=== PATIENT | female | born 1955 | race Hispanic/Latino ===

== ENCOUNTER 2019-10-01 18:59 | Inpatient (IN) | payer SELFPAY ==
[~2019-10-01] VITALS: Ht 160 cm; Wt 47.0 kg
[2019-10-01 19:17] LABS: HEMATOCRIT 32.7 % (36-48); LYMPHOCYTES % (AUTO) 29.2 % (21.0-51.0); MEAN CORPUSCULAR HEMOGLOBIN 31.4 pg (27.0-33.0); MEAN CORPUSCULAR HGB CONC 34.9 g/dL (32.0-36.0); MEAN CORPUSCULAR VOLUME 90.1 fL (79-99); MONOCYTES % (AUTO) 6.3 % (3.0-13.0); NEUTROPHILS % (AUTO) 64.1 % (40.0-77.0); PLATELET COUNT (AUTO) 120 K/uL (130-400); RED BLOOD CELL COUNT(AUTO) 3.63 MIL/uL (4.00-5.50); RED CELL DISTRIBUTION WIDTH 11.8 % (11.0-15.5); WHITE BLOOD COUNT (AUTO) 2.4 K/uL (4.8-10.8)
[2019-10-01] MEDS ORDERED: NITROGLYCERIN 0.4 MG SL TAB SL ONE (19:19)
[2019-10-01] MEDS ORDERED: ASPIRIN 81MG TAB.CHEW ONE ×2 (19:19→20:33)
[2019-10-01] MEDS ORDERED: SODIUM CHLORIDE 0.9% 500ML 500 ML IV ONE ×2 (19:19→19:56)
[2019-10-01 19:28] LABS: B-TYPE NATRIURETIC PEPTIDE 13 pg/mL (0-100)
[2019-10-01 19:31] LABS: CREATININE 0.9 mg/dL (0.5-1.5); POTASSIUM 3.6 mmol/L (3.5-5.1)
[2019-10-01 19:35] LABS: ALBUMIN 3.8 g/dL (3.5-5.0); BILIRUBIN,TOTAL 0.6 mg/dL (0.2-1.0); TOTAL PROTEIN, SERUM 7.3 g/dL (6.0-8.3)
[2019-10-01 20:01] LABS: EOSINOPHILS % (MANUAL) 1 % (1-6); LYMPHOCYTES % (MANUAL) 30 % (22-44); MAN.DIFF COMMENT-IMPRESSION MANUAL DIFFERENTIAL; MONOCYTES % (MANUAL) 4 % (2-9); SEGMENTED NEUTROPHILS % 65 % (40-70)
[2019-10-01] MEDS: SODIUM CHLORIDE 0.9% 1000ML 1,000 ML IV SCH (20:51)
[2019-10-01] MEDS ORDERED: LACTULOSE 20 GM/30 ML UDCUP PO PRN (21:00)
[2019-10-01] MEDS ORDERED: SIMETHICONE 80 MG TAB.CHEW PO PRN (21:00)
[2019-10-01] MEDS ORDERED: ONDANSETRON HCL 4 MG/2 ML VIAL IV PRN (21:00)
[2019-10-01] MEDS: METOPROLOL TARTRATE 25 MG TAB PO SCH (21:00)
[2019-10-01] MEDS ORDERED: ACETAMINOPHEN 325 MG TAB PO PRN ×2 (21:00)
[2019-10-01] MEDS: FAMOTIDINE 20MG TAB 20 MG TAB PO SCH (21:00)
[2019-10-01] MEDS: ATORVASTATIN CALCIUM 20 MG TABLET PO SCH (21:00)
[2019-10-01 21:07] LABS: APPEARANCE,URINE Clear (CLEAR); BILIRUBIN,URINE Negative (NEGATIVE); COLOR,URINE Yellow (YELLOW); GLUCOSE, URINE (UA) Negative (NEGATIVE); KETONES,URINE Trace mg/dL (NEGATIVE); LEUKOCYTE ESTERASE ,URINE Moderate (NEGATIVE); NITRATE,URINE Negative (NEGATIVE); OCCULT BLOOD,URINE Negative (NEGATIVE); PH,URINE 8.5 (5.0-8.0); PROTEIN,URINE Negative (NEGATIVE); UROBILINOGEN,URINE 0.2 mg/dL (0.2-1.0)
[2019-10-01 21:11] LABS: CHOLESTEROL 163 mg/dL (<200); HDL CHOLESTEROL 114 mg/dL (35-85); LDL DIRECT 93 mg/dL (0-99); TRIGLYCERIDES 44 mg/dL (30-200)
[2019-10-01 21:12] LABS: HEMOGLOBIN A1C 5.5 % (4.0-6.0)
[2019-10-01 21:25] LABS: BACTERIA,URINE Few /HPF (None Seen); MUCUS,URINE Few LPF (None Seen); SQUAMOUS EPITHELIAL CELL,UR Few /HPF (0-2)
[2019-10-01] MEDS ORDERED: FAMOTIDINE 20MG TAB 20 MG TAB ONE (21:28)
[2019-10-01] MEDS ORDERED: METOPROLOL TARTRATE 25 MG TAB ONE (21:28)
[2019-10-01] MEDS ORDERED: ATORVASTATIN CALCIUM 20 MG TABLET ONE (21:28)
[2019-10-01] MEDS ORDERED: SODIUM CHLORIDE 0.9% 1000ML 1,000 ML IV ONE (21:29)
[2019-10-01] MEDS: CEFTRIAXONE SODIUM 1 GM IVP SCH (21:45)
[2019-10-01] MEDS ORDERED: CEFTRIAXONE SODIUM 1 GM ONE (22:34)
[2019-10-02 04:24] LABS: HEMATOCRIT 29.8 % (36-48); LYMPHOCYTES % (AUTO) 28.8 % (21.0-51.0); MEAN CORPUSCULAR HEMOGLOBIN 32.1 pg (27.0-33.0); MEAN CORPUSCULAR HGB CONC 36.2 g/dL (32.0-36.0); MEAN CORPUSCULAR VOLUME 88.7 fL (79-99); MONOCYTES % (AUTO) 6.8 % (3.0-13.0); NEUTROPHILS % (AUTO) 64.4 % (40.0-77.0); PLATELET COUNT (AUTO) 100 K/uL (130-400); RED BLOOD CELL COUNT(AUTO) 3.36 MIL/uL (4.00-5.50); RED CELL DISTRIBUTION WIDTH 11.9 % (11.0-15.5); WHITE BLOOD COUNT (AUTO) 2.2 K/uL (4.8-10.8)
[2019-10-02 04:41] LABS: CREATININE 0.6 mg/dL (0.5-1.5); POTASSIUM 3.6 mmol/L (3.5-5.1)
[2019-10-02 06:43] LABS: BAND NEUTROPHILS % (MANUAL) 2 % (0-2); LYMPHOCYTES % (MANUAL) 22 % (22-44); MAN.DIFF COMMENT-IMPRESSION MANUAL DIFFERENTIAL; MONOCYTES % (MANUAL) 6 % (2-9); SEGMENTED NEUTROPHILS % 70 % (40-70)
[2019-10-02 06:44] LABS: PLATELET MORPHOLOGY COMMENT SLIGHTLY DECREASED
[2019-10-02] MEDS: SODIUM CHLORIDE 0.9% 1000ML 1,000 ML IV SCH ×2 (06:51→21:18)
[2019-10-02] MEDS: ENOXAPARIN SODIUM 30 MG/0.3 ML SQ SCH (09:00)
[2019-10-02] MEDS: ASPIRIN 325 MG TABLET PO SCH (09:00)
[2019-10-02] MEDS: METOPROLOL TARTRATE 25 MG TAB PO SCH ×2 (09:00→21:17)
[2019-10-02] MEDS: FAMOTIDINE 20MG TAB 20 MG TAB PO SCH ×2 (09:00→21:17)
[2019-10-02] MEDS ORDERED: ENOXAPARIN SODIUM 30 MG/0.3 ML SQ ONE (11:58)
[2019-10-02] MEDS ORDERED: ASPIRIN 81MG TAB.CHEW ONE (11:58)
[2019-10-02] MEDS ORDERED: METOPROLOL TARTRATE 25 MG TAB ONE (11:58)
[2019-10-02 15:24] LABS: THYROID STIMULATING HORMONE 3.59 uIU/mL (0.36-3.74); URIC ACID 1.1 mg/dL (2.6-7.2)
[2019-10-02 18:44] VITALS: BP 153/79
[2019-10-02] MEDS: ATORVASTATIN CALCIUM 20 MG TABLET PO SCH (21:17)
[2019-10-02] MEDS: CEFTRIAXONE SODIUM 1 GM IVP SCH (21:17)
[2019-10-03 00:09] VITALS: BP 103/60
[2019-10-03 04:39] VITALS: BP 117/70
[2019-10-03 04:58] LABS: EOSINOPHILS % (AUTO) 0.4 % (0.0-8.0); HEMATOCRIT 33.4 % (36-48); LYMPHOCYTES % (AUTO) 44.2 % (21.0-51.0); MEAN CORPUSCULAR HEMOGLOBIN 31.2 pg (27.0-33.0); MEAN CORPUSCULAR VOLUME 89.1 fL (79-99); NEUTROPHILS % (AUTO) 46.4 % (40.0-77.0); PLATELET COUNT (AUTO) 119 K/uL (130-400); RED BLOOD CELL COUNT(AUTO) 3.75 MIL/uL (4.00-5.50); RED CELL DISTRIBUTION WIDTH 11.9 % (11.0-15.5); WHITE BLOOD COUNT (AUTO) 2.3 K/uL (4.8-10.8)
[2019-10-03 05:27] LABS: CREATININE 0.8 mg/dL (0.5-1.5); POTASSIUM 3.3 mmol/L (3.5-5.1)
[2019-10-03 05:56] LABS: LYMPHOCYTES % (MANUAL) 36 % (22-44); MONOCYTES % (MANUAL) 6 % (2-9); SEGMENTED NEUTROPHILS % 58 % (40-70)
[2019-10-03 05:57] LABS: MAN.DIFF COMMENT-IMPRESSION MANUAL DIFFERENTIAL
[2019-10-03 05:58] LABS: PLATELET MORPHOLOGY COMMENT DECREASED
[2019-10-03] MEDS: SODIUM CHLORIDE 0.9% 1000ML 1,000 ML IV SCH ×2 (06:26→18:15)
[2019-10-03 08:00] VITALS: BP 94/65
[2019-10-03] MEDS: METOPROLOL TARTRATE 25 MG TAB PO SCH ×2 (09:00→22:20)
[2019-10-03] MEDS: FAMOTIDINE 20MG TAB 20 MG TAB PO SCH ×2 (09:09→22:19)
[2019-10-03] MEDS: ENOXAPARIN SODIUM 30 MG/0.3 ML SQ SCH (09:10)
[2019-10-03] MEDS: ASPIRIN 325 MG TABLET PO SCH (09:12)
[2019-10-03 11:21] VITALS: BP 92/74
[2019-10-03] MEDS ORDERED: POTASSIUM CHLORIDE 20MEQ/100ML 100 ML IV PRN (11:45)
[2019-10-03] MEDS ORDERED: POTASSIUM CHLORIDE 10% ELIXIR 20 MEQ/15 ML UDCUP PO PRN (11:45)
[2019-10-03] MEDS ORDERED: LIDOCAINE HCL-MPF 1% 2ML VIAL IV PRN (11:45)
[2019-10-03] MEDS: POTASSIUM CHLORIDE 20 MEQ ERTAB PO PRN ×3 (12:18→22:29)
[2019-10-03 16:00] VITALS: BP 92/52
[2019-10-03 19:25] VITALS: BP 95/64
[2019-10-03] MEDS ORDERED: LEVO50 PO (19:40)
[2019-10-03] MEDS: CEFTRIAXONE SODIUM 1 GM IVP SCH (22:19)
[2019-10-03] MEDS: ATORVASTATIN CALCIUM 20 MG TABLET PO SCH (22:19)
[2019-10-04] VITALS (7 sets, daily range): BP systolic 92–124; BP diastolic 59–66
[2019-10-04 04:54] LABS: EOSINOPHILS % (AUTO) 0.7 % (0.0-8.0); HEMATOCRIT 31.6 % (36-48); LYMPHOCYTES % (AUTO) 36.3 % (21.0-51.0); MEAN CORPUSCULAR HEMOGLOBIN 31.2 pg (27.0-33.0); MEAN CORPUSCULAR HGB CONC 33.5 g/dL (32.0-36.0); MEAN CORPUSCULAR VOLUME 92.9 fL (79-99); MONOCYTES % (AUTO) 7.7 % (3.0-13.0); NEUTROPHILS % (AUTO) 55.3 % (40.0-77.0); PLATELET COUNT (AUTO) 115 K/uL (130-400); RED CELL DISTRIBUTION WIDTH 12.3 % (11.0-15.5); WHITE BLOOD COUNT (AUTO) 2.7 K/uL (4.8-10.8)
[2019-10-04 05:11] LABS: CREATININE 0.9 mg/dL (0.5-1.5); MAGNESIUM 2.1 mg/dL (1.80-2.40); POTASSIUM 4.5 mmol/L (3.5-5.1)
[2019-10-04] MEDS: SODIUM CHLORIDE 0.9% 1000ML 1,000 ML IV SCH (07:35)
[2019-10-04] MEDS ORDERED: LEVOTHYROXINE 50 MCG TABLET PO SCH ×2 (08:30→09:00)
[2019-10-04] MEDS: ASPIRIN 81MG TAB.CHEW PO SCH (09:00)
[2019-10-04] MEDS: METOPROLOL TARTRATE 25 MG TAB PO SCH ×2 (09:00→21:41)
[2019-10-04] MEDS: FAMOTIDINE 20MG TAB 20 MG TAB PO SCH ×2 (09:18→21:41)
[2019-10-04] MEDS: LEVOTHYROXINE 50 MCG TABLET PO SCH (09:20)
[2019-10-04] MEDS: ENOXAPARIN SODIUM 30 MG/0.3 ML SQ SCH (09:21)
[2019-10-04] MEDS ORDERED: COSYNTROPIN 0.25 MG VIAL IVP SCH (10:30)
[2019-10-04] MEDS: ATORVASTATIN CALCIUM 20 MG TABLET PO SCH (21:41)
[2019-10-04] MEDS: CEFTRIAXONE SODIUM 1 GM IVP SCH (21:54)
[2019-10-05 04:00] VITALS: BP 108/67
[2019-10-05 07:19] LABS: CREATININE 0.8 mg/dL (0.5-1.5); POTASSIUM 3.8 mmol/L (3.5-5.1)
[2019-10-05 08:00] VITALS: BP 104/64
[2019-10-05] MEDS: METOPROLOL TARTRATE 25 MG TAB PO SCH ×2 (09:00→22:11)
[2019-10-05] MEDS: ASPIRIN 81MG TAB.CHEW PO SCH (09:00)
[2019-10-05] MEDS: LEVOTHYROXINE 50 MCG TABLET PO SCH (09:58)
[2019-10-05] MEDS: FAMOTIDINE 20MG TAB 20 MG TAB PO SCH ×2 (09:58→22:11)
[2019-10-05] MEDS: ENOXAPARIN SODIUM 30 MG/0.3 ML SQ SCH (09:59)
[2019-10-05 11:33] VITALS: BP 105/65
[2019-10-05 16:00] VITALS: BP 100/62
[2019-10-05 21:15] VITALS: BP 124/76
[2019-10-05] MEDS: ATORVASTATIN CALCIUM 20 MG TABLET PO SCH (22:11)
[2019-10-05] MEDS: CEFTRIAXONE SODIUM 1 GM IVP SCH (22:11)
[2019-10-05 23:45] VITALS: BP 118/72
[2019-10-06 05:08] VITALS: BP 105/67
[2019-10-06 05:09] LABS: HEMATOCRIT 29.7 % (36-48); MEAN CORPUSCULAR HEMOGLOBIN 31.6 pg (27.0-33.0); MEAN CORPUSCULAR HGB CONC 34.3 g/dL (32.0-36.0); PLATELET COUNT (AUTO) 130 K/uL (130-400); RED BLOOD CELL COUNT(AUTO) 3.23 MIL/uL (4.00-5.50); WHITE BLOOD COUNT (AUTO) 3.6 K/uL (4.8-10.8)
[2019-10-06 05:18] LABS: CREATININE 0.9 mg/dL (0.5-1.5)
[2019-10-06 05:30] LABS: BAND NEUTROPHILS % (MANUAL) 16 % (0-2); LYMPHOCYTES % (MANUAL) 36 % (22-44); SEGMENTED NEUTROPHILS % 48 % (40-70)
[2019-10-06 05:31] LABS: MAN.DIFF COMMENT-IMPRESSION MANUAL DIFFERENTIAL; PLATELET MORPHOLOGY COMMENT ADEQUATE
[2019-10-06] MEDS: LEVOTHYROXINE 50 MCG TABLET PO SCH (06:47)
[2019-10-06 07:57] VITALS: BP 96/66
[2019-10-06] MEDS: ASPIRIN 81MG TAB.CHEW PO SCH (08:35)
[2019-10-06] MEDS: METOPROLOL TARTRATE 25 MG TAB PO SCH (08:35)
[2019-10-06] MEDS: FAMOTIDINE 20MG TAB 20 MG TAB PO SCH (08:35)
[2019-10-06] MEDS: ENOXAPARIN SODIUM 30 MG/0.3 ML SQ SCH (08:36)
[2019-10-06 11:37] VITALS: BP 83/54
[2019-10-06] MEDS ORDERED: SODIUM CHLORIDE 0.9% 500ML 500 ML IV ONE (14:01)
[2019-10-06] MEDS ORDERED: SODIUM CHLORIDE 0.9% 1000ML 1,000 ML IV SCH (15:00)
[2019-10-06 15:40] VITALS: BP 101/68
== END 2019-10-06 16:40 | disposition home or self-care (01) | DRG 809 ==
LOC: EDH 18:59 → OBSVTOIN 19:00 → EDHIP 19:00 → 3DH 10-02 18:55
PROVIDERS: ADMIT Family Medicine; ATTEND Family Medicine
DX: D61.818 Other pancytopenia (principal); N39.0 Urinary tract infection, site not specified; E87.1 Hypo-osmolality and hyponatremia; E44.0 Moderate protein-calorie malnutrition; Z68.1 Body mass index [BMI] 19.9 or less, adult; E87.8 Other disorders of electrolyte and fluid balance, not elsewhere classified; D64.9 Anemia, unspecified; K75.9 Inflammatory liver disease, unspecified; D73.1 Hypersplenism; E03.9 Hypothyroidism, unspecified; M41.9 Scoliosis, unspecified; F41.9 Anxiety disorder, unspecified
CPT/HCPCS: 36415; 71045; 76700; 80048; 80053; 80061; 80400; 81001; 82533; 82607; 82746; 83036; 83690; 83735; 83880; 83930; 83935; 84300; 84443; 84484; 84550; 85025; 86038; 86215; 86235; 86701; 87088; 87390; 87507; 87804; 93005; G0378; J0696; J0834; J1650; J7030; J7040